=== PATIENT | female | born 1995 | race Hispanic/Latino ===

== ENCOUNTER 2018-12-20 05:15 | Inpatient (IN) | payer MEDICAID, OTHER, SELFPAY ==
[~2018-12-20 05:15] MED LIST: Docusate 100 MG CAP PO PRN; HYDROcodone/Acetaminophen 5/325 mg Tablet PO PRN; Ibuprofen 800 MG TAB PO PRN; Lidocaine 1% (PF) 30 ML VIAL SC PRN; NS / Oxytocin 40 units/1000ml 1,000 ML IV PRN; NS w/ Oxytocin 10 units 500 ML IV SCH; Ondansetron PF 4 MG/2 ML Vial IVP PRN; Promethazine HCl 25 MG/ML VIAL IM PRN; Zolpidem Tartrate 5 MG TAB PO PRN
[2018-12-20] MEDS: Lactated Ringer's 1,000 ML IV SCH ×2 (06:00→13:18)
[2018-12-20 06:02] VITALS: BMI 33.2
[2018-12-20 06:18] LABS: Hemoglobin 12.7 g/dL (12.0-16.0); Mean Corpuscular HGB CONC 34.3 g/dL (32.0-36.0); Mean Corpuscular Hemoglobin 31.9 pg (27.0-31.0); Mean Platelet Volume 7.5 fL (7.4-10.4); Platelet Count 297 thou/uL (130-400); RBC Distribution Width 11.6 % (11.5-14.5); Red Blood Cell (RBC) Count 3.98 mill/uL (4.20-5.40); White Blood Cell (WBC) Count 11.5 thou/uL (4.8-10.8)
[2018-12-20 06:52] LABS: HBSAg Index 0.24 S/CO (0-0.99); Hep B Surf Ag Non-Reactive S/CO (NonReactive); Syphilis Antibody Nonreactive (Nonreactive); Syphilis Antibody Index 0.03 S/CO (<1.00 Non-Reactive)
[2018-12-20] MEDS: Butorphanol Tartrate 1 MG/ML VIAL SLOW IVP PRN ×4 (11:24→15:49)
[2018-12-20] MEDS ORDERED: Lidocaine 1% (PF) 30 ML VIAL ONE (15:57)
[2018-12-20] MEDS ORDERED: NS / Oxytocin 40 units/1000ml 1,000 ML ONE (15:57)
[2018-12-20] MEDS ORDERED: Ondansetron PF 4 MG/2 ML Vial IVP PRN (17:05)
[2018-12-20] MEDS ORDERED: Benzocaine/Menthol 20-0.5% 60 ML CAN TOP PRN (17:05)
[2018-12-20] MEDS ORDERED: HYDROcodone/Acetaminophen 5/325 mg Tablet PO PRN ×2 (17:05)
[2018-12-20] MEDS ORDERED: Lanolin Ointment 7 GM TUBE TOP PRN (17:05)
[2018-12-20] MEDS ORDERED: Promethazine HCl 25 MG/ML VIAL IM PRN (17:05)
[2018-12-20] MEDS ORDERED: Bisacodyl 10 MG SUPP PR PRN (17:05)
[2018-12-20] MEDS ORDERED: Milk Of Magnesia 30 ML UDCUP PO PRN (17:05)
[2018-12-20] MEDS ORDERED: NS / Oxytocin 40 units/1000ml 1,000 ML IV SCH (18:00)
[2018-12-20] MEDS ORDERED: Adacel (T-DAP) 0.5 ML SYRINGE IM ONE (21:00)
[2018-12-20] MEDS: Docusate Calcium (SURFAK) 240 MG CAP PO SCH (21:30)
[2018-12-21] MEDS: Ibuprofen 800 MG TAB PO SCH ×3 (00:48→17:08)
[2018-12-21] MEDS ORDERED: NS / Oxytocin 40 units/1000ml 1,000 ML IV SCH (02:15)
[2018-12-21] MEDS: Ferrous Sulfate 325 MG TAB PO SCH ×2 (09:29→16:44)
[2018-12-21] MEDS: Prenatal Vitamin 1 TAB PO SCH (09:35)
[2018-12-21] MEDS: Docusate Calcium (SURFAK) 240 MG CAP PO SCH (09:36)
--- NOTE | 2018-12-21 11:18 | DN ---
DATE OF PROCEDURE: 12/20/2018 PREOPERATIVE DIAGNOSES: 1. A 23-year-old female, G2, at 39 weeks with an induction of labor. 2. GBS negative. 3. History of previous with preeclampsia, however, no signs in this . 4. Serial growth ultrasounds with abdominal circumference growth lag, overall growth in the 30th percentile. POSTOPERATIVE DIAGNOSES: 1. A 23-year-old female, G2, at 39 weeks with an induction of labor. 2. GBS negative. 3. History of previous with preeclampsia, however, no signs in this . 4. Serial growth ultrasounds with abdominal circumference growth lag, overall growth in the 30th percentile. 5. Live born male with Apgars of 8 and 9 at one and five minutes respectively. CLINICAL HISTORY: This patient is a 23-year-old female, who had a course that was complicated by an abdominal circumference growth lag on serial ultrasound. She was followed closely and seen by maternal medicine, who examined and noted an overall acceptable growth; however, recommended induction of labor or delivery at 38 weeks and beyond. The patient was counseled and the decision was made to induce that 39 weeks. She had a history of preeclampsia in her previous , however, was managed with prophylaxis of aspirin throughout the and had no signs of preeclampsia. The risks, benefits, and possible complications as well as alternatives were discussed with the patient about an induction for Pitocin, and the patient was deemed favorable. The patient was admitted today that she was scheduled at 39 weeks. She was 1.5 cm 60% effaced and -3 station at that time. An amniotomy was performed for clear fluid, and the patient continued to progress on Pitocin. She did not desire an epidural for anesthesia, so she continually got 3 doses of Stadol and progressed to complete cervical dilation. DETAILS OF THE PROCEDURE: The patient gave a good maternal effort and was able to push the vertex to crowing in the EVA position. The head was delivered followed by the anterior shoulder followed by the posterior shoulder. The infant cried vigorously. The cord was doubly clamped and then cut by the father of the baby, and the infant was placed on the maternal abdomen and stimulated. A cord blood was obtained, and then the placenta was delivered spontaneously intact with the 3-vessel cord. The exploration of the vagina, introitus, and cervix revealed no lacerations. The patient tolerated the procedure well and was able to recover in satisfactory condition with her . Again, the was live born male, weighing 7 pounds 11 ounces with Apgars of 8 and 9 at one and five minutes respectively. There were no other issues following the delivery. All needle, sponge, lap, and instrument counts were correct x2 at the end of the procedure. Job ID: [id number]
[2018-12-22] MEDS: Docusate Calcium (SURFAK) 240 MG CAP PO SCH ×2 (00:29→09:46)
[2018-12-22] MEDS: Ibuprofen 800 MG TAB PO SCH ×2 (00:29→06:38)
[2018-12-22 08:10] VITALS: BP 110/69; TEMP 98.6
[2018-12-22] MEDS: Prenatal Vitamin 1 TAB PO SCH (09:46)
[2018-12-22] MEDS: Ferrous Sulfate 325 MG TAB PO SCH (09:46)
== END 2018-12-22 10:30 | disposition home or self-care (01) | DRG 807 ==
LOC: L&D 05:15 → 3SW 18:46 → EDSTATUS 12-30 09:27
PROVIDERS: ADMIT Obstetrics & Gynecology; ATTEND Obstetrics & Gynecology
PROC: 10E0XZZ Delivery of Products of Conception, External Approach (ICD-10-PCS; principal; 2018-12-20)
DX: O36.5930 Maternal care for other known or suspected poor fetal growth, third trimester, not applicable or unspecified (principal); Z37.0 Single live birth; Z3A.39 39 weeks gestation of pregnancy
CPT/HCPCS: 85027; 86780; 86850; 86900; 86901; 87340; J0595; J2001; J2405